=== PATIENT | female | born 1980 | race Caucasian/White ===

== ENCOUNTER → 2024-03-12 14:38 | Outpatient (REF) | payer OTHER, SELFPAY ==
--- NOTE | 2024-03-12 15:46 | CARDSERVLU ---
Echocardiogram with Lumason completed after protocol screening completed. Allergies verified.
Patent IV site: _Right antecubital 22 P PC ____
IV site flushed with 0.9% NaCl pre and post administration.
Diluted bolus method utilized to enhance visualization of ventricular mackenzie.
Total volume given: _5___ mL
Patient tolerated all procedures well without complications.
Heplock D/C ed at 1545, site clear, no redness, no edema. Pressure held, no bleeding. 2x2 applied and taped. Pt offers no complaints.
== END ==
LOC: RCS 14:38
PROVIDERS: ATTENDING PHYSICIAN Nurse Practitioner; FAMILY PHYSICIAN Family Medicine
DX: I42.9 Cardiomyopathy, unspecified (principal)
CPT/HCPCS: 93306; Q9950

== ENCOUNTER → 2024-08-27 10:50 | Outpatient (REF) | payer OTHER, SELFPAY | LOC: RCS 10:50 | PROVIDERS: ATTENDING PHYSICIAN Internal Medicine Cardiovascular Disease; FAMILY PHYSICIAN Family Medicine | DX: I42.9 Cardiomyopathy, unspecified (principal); R00.2 Palpitations; I49.3 Ventricular premature depolarization | CPT/HCPCS: 93225; 93226 ==